=== PATIENT | male | born 1960 | race Caucasian/White ===

== ENCOUNTER 2024-09-14 05:59 | Day surgery (SDC) | payer BC ==
[2024-09-14] MEDS ORDERED: Lactated Ringers 1,000 ML IV ONE (06:05)
[2024-09-14] MEDS: Lactated Ringers 1,000 ML IV SCH (06:16)
[2024-09-14 06:28] VITALS: RESP 16
[2024-09-14] MEDS ORDERED: propofoL IV ONE ×2 (07:02→07:12)
[2024-09-14] MEDS ORDERED: Versed 2 MG/2 ML Injection ONE (07:03)
[2024-09-14 08:00] VITALS: O2SAT 99
[2024-09-14 08:08] VITALS: BP 118/76; PULSE 51; TEMP 97.5
--- NOTE | 2024-09-15 11:01 | OP ---
SURGERY DATE/TIME: 09/14/2024 [id number] PREOPERATIVE DIAGNOSIS: Screening exam. POSTOPERATIVE DIAGNOSIS: Normal colonoscopy. PROCEDURE: Colonoscopy. SURGEON: Mario Andres MD ANESTHESIA: Medications were given by the anesthesia department. INDICATIONS: The patient is a 64-year-old white male patient presenting now for screening colonoscopy. He was apprised of the risks of the procedure including risk of perforation, phlebitis, untoward reaction to medication, bleeding, and missed lesions. The patient verbalized his understanding and desire to have procedure performed. DESCRIPTION OF PROCEDURE AND FINDINGS: The patient was given medication by the anesthesia department. He had continuous pulse oximetry, ECG monitoring, and intermittent blood pressure monitoring during the examination. He was placed in the left lateral decubitus position. Digital rectal examination was performed and revealed normal anal sphincter tone and no masses and a normal prostate. The flexible Olympus videocolonoscope was used to intubate the rectum. A view of the colon was developed sequentially to the cecum. Upon insertion and withdrawal, including retroflexed view in the rectum, no mucosal lesions were encountered. The scope was removed from the patient, who tolerated the procedure well, and was sent back to outpatient recovery in good condition. The prep was noted to be good.
== END 2024-09-14 08:14 | disposition home or self-care (01) ==
LOC: SDC 05:59
PROVIDERS: ATTEND Family Medicine
DX: Z12.11 Encounter for screening for malignant neoplasm of colon (principal)
CPT/HCPCS: J2250; J2704